=== PATIENT | female | born 1995 ===

== ENCOUNTER → 2023-10-05 10:14 | Outpatient (CLI) | payer OTHER, SELFPAY ==
--- NOTE | ~2023-10-05 | US_ITS ---
EXAMINATION: US OB /maternal detail DATE: 10/05/2023 11:13 INDICATION: anatomic survey. TECHNIQUE: Real-time ultrasound of the pelvis was performed. COMPARISON: None. FINDINGS: There is a single living fetus in variable presentation. The placenta is posterior, 4.9 cm in the ce rvix. The cervical length is 3.6 cm on transabdominal images, which is normal. heart rate is 14 2 beats per minute (bpm). The amniotic fluid volume is subjectively normal. The following biometric data were obtained: Biparietal diameter (BPD): 4.4 cm; head circumference (HC): 17.0 cm; abdominal circumference (AC): 14 .1 cm; femur length (FL): 3.0 cm. These measurements are concordant. Estimated weight is 291 g +/- 44 g, which correlates with the 17th percentile when 02/22/24 is us ed as estimated date of delivery. As single measurements, these parameters are each equal to the following estimated gestational ages: BPD: 19 weeks 3 days. HC: 19 weeks 4 days. AC: 19 weeks 3 days. FL: 19 weeks 3 days. estimated gestational age based solely on measurements from this exam is 19 weeks 3 days +/- 1 weeks 3 days. The cerebral ventricles, cerebellum, cisterna magna, nuchal fold, lip, and visualized portions of the spine are normal. The heart is normal. The diaphragm, stomach, kidneys, and bladder are normal. Ther e are two umbilical arteries to yield a 3-vessel cord. The cord insertion is normal. IMPRESSION: 1. Single living fetus in variable presentation. 2. Estimated weight is 291 g +/- 44 g, which correlates with the 17th percentile when 02/22/24 i s used as estimated date of delivery. Reviewed, dictated and finalized at location E. TYPE OPERATOR IMPRESSION: 1. Single living fetus in variable presentation. 2. Estimated weight is 291 g +/- 44 g, which correlates with the 17th pe rcentile when 02/22/24 is used as estimated date of delivery.
== END ==
PROVIDERS: PCP Obstetrics & Gynecology; Visit Provider Obstetrics & Gynecology
DX: Z34.91 Encounter for supervision of normal pregnancy, unspecified, first trimester (principal); Z3A.19 19 weeks gestation of pregnancy
CPT/HCPCS: 76805

== ENCOUNTER → 2023-12-21 07:58 | Outpatient (CLI) | payer OTHER, SELFPAY ==
--- NOTE | ~2023-12-21 | US_ITS ---
EXAMINATION: US OB follow up DATE: 12/21/2023 09:11 INDICATION: Size greater than dates during third trimester TECHNIQUE: Real-time ultrasound of the pelvis was performed. The interpreting radiologist was not pre sent for the study. COMPARISON: 10/05/2023 FINDINGS: There is a single living fetus in vertex presentation. The placenta is posterior. car diac activity and movement are noted. heart rate is 143 beats per minute (bpm). The amnio tic fluid index is 17.1 cm which is normal (normal range: 8.8 cm to 23.8 cm) . The following biometric data were obtained: Biparietal diameter (BPD): 7.5 cm; head circumference (HC): 27.5 cm; abdominal circumference (AC): 26 .3 cm; femur length (FL): 5.7 cm. These measurements are concordant. Estimated weight is 1534 g +/- 230 g, which correlates with the 16th percentile when 02/28/2024 is used as estimated date of delivery. As single measurements, these parameters are each equal to the following estimated gestational ages w ith ranges of +/- 2 standard deviations: BPD: 30 weeks 0 days ( 27 weeks 6 days - 32 weeks 2 days). HC: 30 weeks 1 days ( 27 weeks 1 days - 33 weeks 1 days). AC: 30 weeks 3 days ( 27 weeks 3 days - 33 weeks 2 days). FL: 30 weeks 0 days ( 28 weeks 0 days - 32 weeks 1 days). estimated gestational age based solely on measurements from this exam is 30 weeks 1 days +/- 2 weeks 1 days. IMPRESSION: 1. Single living fetus in vertex presentation. 2. Normal amniotic fluid index. 3. Estimated weight is 1534 g +/- 230 g, which correlates with the 16th percentile when 02/28/20 24 is used as estimated date of delivery. Reviewed, dictated and finalized at location F. STICS ASSISTANT IMPRESSION: 1. Single living fetus in vertex presentation. 2. Normal amniotic fluid index. 3. Estimated weight is 1534 g +/- 230 g, which correlates with the 16th p ercentile when 02/28/2024 is used as estimated date of delivery.
== END ==
PROVIDERS: PCP Obstetrics & Gynecology; Visit Provider Obstetrics & Gynecology
DX: O34.599 Maternal care for other abnormalities of gravid uterus, unspecified trimester (principal); Z3A.00 Weeks of gestation of pregnancy not specified
CPT/HCPCS: 76816